=== PATIENT | female | born 1965 | race Caucasian/White ===

== ENCOUNTER 2022-05-06 18:35 | Emergency (ER) | payer MEDICARE, MEDICAID ==
[~2022-05-06] VITALS: Ht 154.9 cm; Wt 50.0 kg
[~2022-05-06 18:35] MED LIST: ONDA4TAB59 PO
[2022-05-06 18:55] VITALS: BP 138/89
[2022-05-06 19:26] LABS: CLARITY,URINE CLEAR (Clear); COLOR,URINE YELLOW (Yellow); GLUCOSE, URINE NEGATIVE (Neg); KETONES,URINE NEGATIVE (Neg); LEUKOCYTE ESTERASE ,URINE NEGATIVE (Neg); NITRITES, URINE NEGATIVE (Neg); OCCULT BLOOD,URINE NEGATIVE (Neg); PROTEIN,URINE NEGATIVE (Neg); UROBILINOGEN,URINE 0.2 E.U/dL (0.2-1.0)
[2022-05-06 19:29] LABS: UA COLLECTION TYPE FOLEY CATH
== END 2022-05-06 20:51 | disposition home or self-care (01) ==
LOC: ER 18:35
DX: R33.9 Retention of urine, unspecified (principal); G89.29 Other chronic pain; G43.909 Migraine, unspecified, not intractable, without status migrainosus; Z88.2 Allergy status to sulfonamides; Z79.899 Other long term (current) drug therapy
CPT/HCPCS: 51702; 81003; 99284; A4358

== ENCOUNTER 2025-03-15 06:43 | Emergency (ER) | payer MEDICARE, MEDICAID ==
[~2025-03-15] VITALS: Ht 152.4 cm; Wt 60.1 kg
[2025-03-15 06:47] VITALS: TEMP 97.3
--- NOTE | 2025-03-15 06:54 | Physician Documentation ---
History of Present Illness ~ Chief Complaint: Flank Pain Stated Complaint: KIDNEY ISSUES Time Seen by MD: 06:53 Primary Medical Doctor: GEE GAMBLE 59-year-old female presenting with bilateral back and flank pain. She tells me that over the past couple of days she has been having pain in her flank and back. She states it started around with her hips and then moved into the lower back on both sides. She states it does seem to radiated around to her lower abdomen. She reports some mild associated nausea. She did take some ibuprofen and it helped. Nothing else makes it feel better. Certain movements and activities make it feel worse. She states that it feels different than her previous back pain. No fevers, chills, vomiting, diarrhea, dysuria, hematuria, or other associated symptoms. Medication Reconciliation Allergies: Coded Allergies: Sulfa (Sulfonamide Antibiotics) (Verified Allergy, Unknown, 03/15/25) Scheduled Ondansetron Hcl (Ondansetron Hcl), 4 MG PO Q4H Past Medical History Past Medical History: Migraine, Vertigo, Chronic Pain, Osteoarthritis Past Surgical History: other Alcohol Use: None Drug Use: none Lives with: Alone Lives In: Home Review of Systems Gastrointestinal: Reports: nausea; Denies: abdominal pain, vomiting, diarrhea Musculoskeletal: Reports: back pain Physical Exam Vital Signs: Temperature: 97.3, Source: Oral, Heart Rate: 76, Respiratory Rate: 16, BP: 126/76, Pulse Oximetry: 99, Weight: 60.100 Oxygen Flow Rate: 0 Physical Exam General: This is a pleasant and overall healthy-appearing middle-aged woman, son at bedside HEENT: Atraumatic, oropharynx is moist Heart: Regular rate and rhythm, normal-appearing peripheral perfusion Lungs: normal work of breathing, normal oxygen saturation on room air Abdomen: Soft, nondistended, nontender all quadrants including in the right upper quadrant, left upper quadrant, and suprapubic region Back: Reproducible tenderness on palpation over the right and left SI joints and paralumbar musculature. No focal midline tenderness. No overlying rash. She does have CVA tenderness to percussion bilateral, left worse than right Neuro: Alert and oriented Psychiatric: Calm and cooperative with exam Progress Results/Orders Results/Orders Completed Orders - MIKE CHAVEZ MD Cbc/Diff (03/15/25 06:52) Lipase (03/15/25 06:52) CMP (03/15/25 06:52) Lidocaine 5% Patch (Lidoderm 5% Patch) (03/15/25 07:10) Ua W/Microscopic, Cult If Ind (03/15/25 07:00) Medications Received in ER Medications (Trade) Dose Ordered Sig/Ignacio Route PRN Reason Start Time Stop Time Status Last Admin Dose Admin (Lidoderm 5% Patch) 1 patch ONCE ONCE TP 03/15/25 07:10 03/15/25 07:11 DC 03/15/25 08:42 1 PATCH Vital Signs 03/15/25 06:47 Temp 97.3 Pulse 76 Resp 16 B/P (MAP) 126/76 Pulse Ox 99 O2 Flow Rate 0 Laboratory Tests Test 03/15/25 07:00 03/15/25 08:26 Urine Specimen Description Cln catch midstream Urine Color Yellow Urine Clarity Clear Urine pH 6.5 Urine Specific [place] 1.010 Urine Protein Negative Urine Glucose (UA) Negative Urine Ketones Negative Urine Occult Blood Trace-intact Urine Nitrite Negative Urine Bilirubin Negative Urine Urobilinogen 0.2 Urine Leukocyte Esterase Negative Urine RBC 0-2 Urine WBC 0-4 Urine Squamous Epithelial Cells Moderate Urine Bacteria None seen Urine Culture Indicated Not ind Volume Urine Centrifuged 10 ml Urine Comment White Blood Count 4.3 L Red Blood Count 4.04 L Hemoglobin 12.6 Hematocrit 37.9 Mean Corpuscular Volume 94.0 Mean Corpuscular Hemoglobin 31.2 H Mean Corpuscular Hemoglobin Concent 33.2 Red Cell Distribution Width 13.0 Platelet Count 228 Mean Platelet Volume 7.7 Neutrophils (%) (Auto) 58.0 Lymphocytes (%) (Auto) 28.6 Monocytes (%) (Auto) 9.0 Eosinophils (%) (Auto) 2.9 Basophils (%) (Auto) 1.5 H Neutrophils # (Auto) 2.5 Lymphocytes # (Auto) 1.2 Monocytes # (Auto) 0.4 Eosinophils # (Auto) 0.1 Basophils # (Auto) 0.1 CBC Comment Sodium Level 143 Potassium Level 4.0 Chloride Level 107 Carbon Dioxide Level 29.6 Anion Gap 6 L Blood Urea Nitrogen 13 Creatinine 0.61 Estimated GFR/1.73 m2 > 90 BUN/Creatinine Ratio 21.3 H Glucose Level 90 Calcium Level 9.2 Total Bilirubin 0.4 Aspartate Amino Transf (AST/SGOT) 18 Alanine Aminotransferase (ALT/SGPT) 19 Alkaline Phosphatase 74 Total Protein 7.2 Albumin 3.9 Globulin 3.3 Albumin/Globulin Ratio 1.2 Lipase 31 Chemistry Comments Medical Decision Making Additional Comments Differential includes muscle strain or spasm, kidney stone, kidney infection, gallbladder disease, pancreatitis, hepatitis Assessment 59-year-old female presenting with bilateral low back and flank pain. Per her history and exam this seems more likely to be musculoskeletal. She has no other infectious symptoms. She has a benign abdominal exam. Labs and urinalysis are unremarkable. On re-evaluation, she is resting comfortably in bed. I did have a shared decision-making conversation regarding the possibility of doing a CT scan to rule out kidney stone. After this discussion she declined the CT scan preferred to just go home with symptomatic treatment. I suspect this is musculoskeletal pain. She will be given treatment for this and return prec autions for worsening symptoms. Departure Time of Disposition: 09:19 Disposition: 01 HOME / SELF CARE / HOMELESS Impression: Primary Impression: Strain of lumbar region Condition: Stable Discharge Instructions: Lumbosacral Strain Referrals: NO PRIMARY CARE PROVIDER (PCP) Education Educated: Patient Educated regarding: diagnosis, treatment, need for follow up Signature Scribe Signature: na Attestation: MIKE Briggs MD Mar 15, 2025 06:54
[2025-03-15 08:56] LABS: MEAN PLATELET VOLUME 7.7 FL (7.4-10.4); RED CELL DISTRIBUTION WIDTH 13.0 % (11.5-14.5)
[2025-03-15 09:01] LABS: LEUKOCYTE ESTERASE ,URINE NEGATIVE (Neg); NITRITES, URINE NEGATIVE (Neg); OCCULT BLOOD,URINE TRACE-INTACT (Neg)
[2025-03-15 09:02] LABS: UA COLLECTION TYPE CLN CATCH MIDSTREAM
[2025-03-15 09:06] LABS: SQUAMOUS EPITHELIAL CELL,UR MODERATE /LPF (FEW)
[2025-03-15 09:10] LABS: CREATININE 0.61 MG/DL (0.40-0.90); TOTAL CARBON DIOXIDE 29.6 MMOL/L (24-32); eCRCL 71 ML/MIN; eGFR > 90 ML/MIN
[2025-03-15 09:36] VITALS: BP 116/78; PULSE 78; RESP 16; O2SAT 98
== END 2025-03-15 09:37 | disposition home or self-care (01) ==
LOC: ER 06:44
DX: S39.012A Strain of muscle, fascia and tendon of lower back, initial encounter (principal); M19.90 Unspecified osteoarthritis, unspecified site; G43.909 Migraine, unspecified, not intractable, without status migrainosus; Z88.2 Allergy status to sulfonamides; X58.XXXA Exposure to other specified factors, initial encounter; Y93.89 Activity, other specified; Y92.89 Other specified places as the place of occurrence of the external cause; Y99.8 Other external cause status
CPT/HCPCS: 36415; 80053; 81001; 83690; 85025; 99283